=== PATIENT | male | born 1985 | race Caucasian/White ===

== ENCOUNTER → 2016-08-24 | Outpatient (CLI) | payer SELFPAY ==
--- NOTE | 2016-08-24 16:49 | DI ---
MRI LUMBAR SPINE SCAN WITHOUT IV CONTRAST, 08/24/2016 8:53 AM: Clinical History: Acute left-sided low back pain with left sciatica. Previous Exam: None. Technique: Sagittal and axial T2 weighted; sagittal T1 weighted and T2 STIR; and axial PD. The vertebral bodies are of normal height and size. The lumbar disc spaces are normal height and sign al intensity. The cord terminates at T12-L1, and the conus medullaris is normal. The disc spaces from T10-11 through L3-4 are normal. L4-5 and L5-S1 both have mild circumferentially bulging but not nazanin iated discs without canal or neural foraminal stenosis. On the axial scans at L1-2 and L2-3, CSF flow artifacts are present. Readin. Mild circumferentially bulging but not herniated discs without canal or neural foraminal stenosis at L4-5 and L5-S1. 2. The disc spaces from T10-11 through L3-4 are normal.
== END ==
LOC: MRI 08:48
PROVIDERS: ATTEND Family Medicine
DX: M54.42 Lumbago with sciatica, left side (principal); M47.817 Spondylosis without myelopathy or radiculopathy, lumbosacral region
CPT/HCPCS: 72148